=== PATIENT | male | born 1990 | race African-American/Black ===

== ENCOUNTER 2024-09-21 18:24 | Emergency (ER) | payer SELFPAY ==
--- NOTE | ~2024-09-21 | CT_ITS ---
CT soft tissue neck w con Ordering provider: Bee Shi PA-C History: 33 years Male with . neck swelling . Comparison: This was a presented Technique: CT soft tissues neck was performed with contrast. . The dose-length product was 496.19 mGy-cm. Findings: LOWER HEAD: The visualized brain parenchyma, optic globes/orbits and mastoids are normal. The visua lized paranasal sinuses are well aerated. SALIVARY GLANDS: Normal. THYROID: Normal. SUPRAHYOID DEEP SPACES: Normal. CAROTID ARTERIES: Normal. JUGULAR VEINS: Normal. TONSILS: Normal. ORAL CAVITY: Unremarkable PHARYNX, LARYNX AND TRACHEA: Patent. No prevertebral soft tissue swelling. SUPERFICIAL SOFT TISSUES: Unremarkable. Scattered nonpathologically enlarged lymph nodes within the bilateral cervical chains and the subment al lymph node basin. Prominent jugulodigastric lymph nodes are also detected. THORACIC INLET/VISUALIZED UPPER CHEST: Unremarkable. SKELETAL: No significant degenerative disease. IMPRESSION: Scattered nonpathologically enlarged lymph nodes within the bilateral cervical chains and the subment al lymph node basin, a nonspecific finding. Prominent jugulodigastric lymph nodes are also detected. Reviewed, dictated and finalized at location A. [employer] [employer] IMPRESSION: Scattered nonpathologically enlarged lymph nodes within the bilateral cervical chains and the submental lymph node basin, a nonspecific finding. Prominent jugulodigastric lymph nodes are also detected.
[2024-09-21 18:29] VITALS: BP 165/100; PULSE 95; RESP 18; TEMP 37.3; O2SAT 100
--- NOTE | 2024-09-21 18:32 | ED_ITS ---
HPI - General Adult General Chief complaint: Unspecified <Jordana Pennington PA-C - Last Filed: 09/21/24 18:33> Stated complaint: sore throat <Jordana Pennington PA-C - Last Filed: 09/21/24 18:33> Time Seen by Provider: 09/21/24 21:39 <Jordana Pennington PA-C - Last Filed: 09/21/24 18:33> Focused HPI: 33-year-old male presents emergency department for globus sensation for the past 3 days. Patient states it feels like someone is taking their fingers and pushing in on the anterior side of his neck. He states he feels this all the time and especially when he swallows. He denies difficulty swallowing or breathing. Denies sore throat or anterior neck pain, fever, history of thyroid disorders. GENERAL: Well-appearing, well-nourished, and in no acute distress. HEAD: Normocephalic, atraumatic. ENT: bilateral TMs are wiley nonbulging with normal canals. Posterior pharynx erythema or edema, no tonsillar hypertrophy or uvular deviation, no exudates CHEST: Clear to auscultation. ?No respiratory distress. HEART: Regular rate and rhythm.? NEURO: ?Alert and oriented x3. Patient screened in triage and initial orders placed.? ?Additional care and disposition to be based upon?diagnostic testing and treatment. <Jordana Pennington PA-C - Last Filed: 09/21/24 18:33> Focused HPI: 33-year-old male presents emergency department for globus sensation for the past 3 days. Patient states it feels like someone is taking their fingers and pushing in on the anterior side of his neck. He states he feels this all the time and especially when he swallows. He denies difficulty swallowing or breathing. Denies sore throat or anterior neck pain, fever, history of thyroid disorders. GENERAL: Well-appearing, well-nourished, and in no acute distress. HEAD: Normocephalic, atraumatic. ENT: bilateral TMs are wiley nonbulging with normal canals. Posterior pharynx erythema, no tonsillar hypertrophy or uvular deviation, no exudates CHEST: Clear to auscultation. ?No respiratory distress. HEART: Regular rate and rhythm.? NEURO: ?Alert and oriented x3. Patient screened in triage and initial orders placed.? ?Additional care and disposition to be based upon?diagnostic testing and treatment. <Bee Shi PA-C - Last Filed: 09/22/24 00:14> Review of Systems 2 Review of Systems: CONSTITUTIONAL: Denies fever ENT: Denies sore throat RESPIRATORY: Denies dyspnea. <Bee Shi PA-C - Last Filed: 09/22/24 00:14> All systems reviewed & are unremarkable except as noted in HPI and below < Bee Shi PA-C - Last Filed: 09/22/24 00:14> [facility] Past Medical History Medical History: Medical History (Updated 09/22/24 @ 00:12 by Bee Shi PA-C) No active medical problems <Jordana Pennington PA-C - Last Filed: 09/21/24 18:33> Social History Social History: Social History (Updated 09/21/24 @ 21:47 by Bee Shi PA-C) Substance use: never <Jordana Pennington PA-C - Last Filed: 09/21/24 18:33> Exam 2 Narrative: GENERAL: Well-appearing, well-nourished, and in no acute distress. HEAD: Normocephalic, atraumatic. EYES: EOMI. ENT: Nares clear, no rhinorrhea or epistaxis. Mucous membranes moist. Oropharynx without tonsillar hypertrophy exudate or other lesions. NECK: Supple. No adenopathy or masses. CHEST: Clear to auscultation. No respiratory distress. No wheezes rales or rhonchi HEART: Regular rate and rhythm. No murmur heard. Normal peripheral pulses. EXTREMITIES: Normal range of motion. No edema. SKIN: Warm, dry, no rash. NEURO: No focal deficits. Alert and oriented x3. PSYCH: Normal mood and affect <Bee Shi PA-C - Last Filed: 09/22/24 00:14> Course Course Emergency Course: Patient updated on his workup and agrees plan of care <Bee Shi PA-C - Last Filed: 09/22/24 00:14> Vital Signs Vital signs: Vital Signs Temperature 99.2 F 09/21/24 18:29 Pulse Rate 95 09/21/24 18:29 Respiratory Rate 18 09/21/24 18:29 Blood Pressure 165/100 H 09/21/24 18:29 Pulse Oximetry 100 09/21/24 18:29 Oxygen Delivery Room Air 09/21/24 18:29 Temperature 99.2 F 09/21/24 18:29 Pulse Rate 95 09/21/24 18:29 Respiratory Rate 18 09/21/24 18:29 Blood Pressure 165/100 H 09/21/24 18:29 Pulse Oximetry 100 09/21/24 18:29 Oxygen Delivery Room Air 09/21/24 18:29 <Jordana Pennington PA-C - Last Filed: 09/21/24 18:33> Vital Signs Temperature 99.2 F 09/21/24 18:29 Pulse Rate 95 09/21/24 18:29 Respiratory Rate 18 09/21/24 18:29 Blood Pressure 165/100 H 09/21/24 18:29 Pulse Oximetry 100 09/21/24 18:29 Oxygen Delivery Room Air 09/21/24 18:29 Temperature 99.2 F 09/21/24 18:29 Pulse Rate 95 09/21/24 18:29 Respiratory Rate 18 09/21/24 18:29 Blood Pressure 165/100 H 09/21/24 18:29 Pulse Oximetry 100 09/21/24 18:29 Oxygen Delivery Room Air 09/21/24 18:29 <DILLON Smith Last Filed: 09/22/24 00:14> Medical Decision Making MDM Narrative Medical decision making narrative: Patient presents to the emergency department for throat discomfort. He is afebrile and nontoxic appearing. CBC with mild leukocytosis to 12.4. Metabolic panel without concerning findings. COVID, influenza and RSV screens are negative. Strep screen is negative. CT soft tissue neck is shows scattered non pathologically enlarged lymph nodes. Patient updated on his workup and agrees plan of care. He is to follow up with primary provider. He was given warnings to return to the ER <DILLON Smith Last Filed: 09/22/24 00:14> Differential Diagnosis Differential Diagnosis: Strep, viral pharyngitis, lymphadenopathy <DILLON Smith Last Filed: 09/22/24 00:14> Vital Signs Vital Signs: Vital Signs Temperature 99.2 F 09/21/24 18:29 Pulse Rate 95 09/21/24 18:29 Respiratory Rate 18 09/21/24 18:29 Blood Pressure 165/100 H 09/21/24 18:29 Pulse Oximetry 100 09/21/24 18:29 Oxygen Delivery Room Air 09/21/24 18:29 Temperature 99.2 F 09/21/24 18:29 Pulse Rate 95 09/21/24 18:29 Respiratory Rate 18 09/21/24 18:29 Blood Pressure 165/100 H 09/21/24 18:29 Pulse Oximetry 100 09/21/24 18:29 Oxygen Delivery Room Air 09/21/24 18:29 <Jordana Pennington PA-C - Last Filed: 09/21/24 18:33> Vital Signs Temperature 99.2 F 09/21/24 18:29 Pulse Rate 95 09/21/24 18:29 Respiratory Rate 18 09/21/24 18:29 Blood Pressure 165/100 H 09/21/24 18:29 Pulse Oximetry 100 09/21/24 18:29 Oxygen Delivery Room Air 09/21/24 18:29 Temperature 99.2 F 09/21/24 18:29 Pulse Rate 95 09/21/24 18:29 Respiratory Rate 18 09/21/24 18:29 Blood Pressure 165/100 H 09/21/24 18:29 Pulse Oximetry 100 09/21/24 18:29 Oxygen Delivery Room Air 09/21/24 18:29 <Bee Shi PA-C - Last Filed: 09/22/24 00:14> Lab Data Lab results reviewed: Yes I reviewed the patient's lab results. <DILLON Smith Last Filed: 09/22/24 00:14> Result diagrams: 09/21/24 22:03 09/21/24 22:03 <DILLON Littlejohn Last Filed: 09/21/24 18:33> Labs: Lab Results 09/21/24 09/21/24 Range/Units 19:39 22:03 WBC 12.4 H (4.5-10.0) K/mm3 RBC 4.43 L (4.6-6.20) M/mm3 Hgb 12.1 L (14.0-18.0) g/dL Hct 37.0 L (42.0-52.0) % MCV 83.5 (80-100) fl MCH 27.3 (26-34) pg MCHC 32.7 (32-36) g/dl RDW 13.5 (11.5-14.5) % Plt Count 237 (150-375) k/mm3 MPV 9.3 (7.4-10.4) fl Immature Gran % (Auto) 0.5 (0-0.5) % Neut % (Auto) 64.9 (45.5-73.1) % Lymph % (Auto) 27.3 (18.3-44.2) % [place] % (Auto) 5.9 (2.6-8.5) % Eos % (Auto) 1.2 (0-4.4) % Baso % (Auto) 0.2 (0.2-1.2) % Lymph # (Auto) 3.39 H (0.9-3.2) K/mm3 [place]ac # (Auto) 0.7 H (0.1-0.6) K/mm3 Eos # (Auto) 0.2 (0-0.3) K/mm3 Baso # (Auto) 0.0 (0.0-0.1) K/mm3 Abs Immat Gran (auto) 0.06 H (0.00-0.031) K/mm3 Absolute Neuts (auto) 8.1 H (1.3-6.7) K/mm3 Absolute Nucleated RBC 0.000 (0.0-0.012) K/mm3 Nucleated RBC % 0.0 (0.0-0.2) % Sodium 137 (137-145) mmol/L Potassium 3.9 (3.4-5.0) mmol/L Chloride 99 (98-107) mmol/L Carbon Dioxide 27 (22-30) mmol/L Anion Gap 11 (4-12) mmol/L BUN 10 (9-20) mg/dL Creatinine 0.74 (0.7-1.3) mg/dL Estim Creat Clear Calc 208 ml/min Estimated GFR > 60 (59 - ) Glucose 103 (65-110) mg/dL Calcium 9.5 (8.4-10.2) mg/dL Influenza A (RT-PCR) Negative (Negative) Influenza B (RT-PCR) Negative (Negative) RSV (RT-PCR) Negative (Negative) SARS-CoV-2 RNA (RT-PCR) Negative (Negative) Group A Strep (PCR) Not detected (Negative) <Jordana Pennington PA-C - Last Filed: 09/21/24 18:33> Lab Results 09/21/24 09/21/24 Range/Units 19:39 22:03 WBC 12.4 H (4.5-10.0) K/mm3 RBC 4.43 L (4.6-6.20) M/mm3 Hgb 12.1 L (14.0-18.0) g/dL Hct 37.0 L (42.0-52.0) % MCV 83.5 (80-100) fl MCH 27.3 (26-34) pg MCHC 32.7 (32-36) g/dl RDW 13.5 (11.5-14.5) % Plt Count 237 (150-375) k/mm3 MPV 9.3 (7.4-10.4) fl Immature Gran % (Auto) 0.5 (0-0.5) % Neut % (Auto) 64.9 (45.5-73.1) % Lymph % (Auto) 27.3 (18.3-44.2) % [place]ac % (Auto) 5.9 (2.6-8.5) % Eos % (Auto) 1.2 (0-4.4) % Baso % (Auto) 0.2 (0.2-1.2) % Lymph # (Auto) 3.39 H (0.9-3.2) K/mm3 [place]ac # (Auto) 0.7 H (0.1-0.6) K/mm3 Eos # (Auto) 0.2 (0-0.3) K/mm3 Baso # (Auto) 0.0 (0.0-0.1) K/mm3 Abs Immat Gran (auto) 0.06 H (0.00-0.031) K/mm3 Absolute Neuts (auto) 8.1 H (1.3-6.7) K/mm3 Absolute Nucleated RBC 0.000 (0.0-0.012) K/mm3 Nucleated RBC % 0.0 (0.0-0.2) % Sodium 137 (137-145) mmol/L Potassium 3.9 (3.4-5.0) mmol/L Chloride 99 (98-107) mmol/L Carbon Dioxide 27 (22-30) mmol/L Anion Gap 11 (4-12) mmol/L BUN 10 (9-20) mg/dL Creatinine 0.74 (0.7-1.3) mg/dL Estim Creat Clear Calc 208 ml/min Estimated GFR > 60 (59 - ) Glucose 103 (65-110) mg/dL Calcium 9.5 (8.4-10.2) mg/dL Influenza A (RT-PCR) Negative (Negative) Influenza B (RT-PCR) Negative (Negative) RSV (RT-PCR) Negative (Negative) SARS-CoV-2 RNA (RT-PCR) Negative (Negative) Group A Strep (PCR) Not detected (Negative) <Bee Shi PA-C - Last Filed: 09/22/24 00:14> Imaging Data Radiologist's impression: ITS Impressions Soft Tissue Neck CT 09/21/24 22:56 IMPRESSION: Scattered nonpathologically enlarged lymph nodes within the bilateral cervical chains and the submental lymph node basin, a nonspecific finding. Prominent jugulodigastric lymph nodes are also detected. <Bee Shi PA-C - Last Filed: 09/22/24 00:14> Critical Care Time Critical Care Time Critical Care Time: No <DILLON Smith Last Filed: 09/22/24 00:14> Discharge Plan Discharge Clinical Impression: Lymphadenopathy of head and neck <DILLON Littlejohn Last Filed: 09/21/24 18:33> Patient Disposition: Home, Self-Care <DILLON Littlejohn Last Filed: 09/21/24 18:33> Condition: Stable <DILLON Littlejohn Last Filed: 09/21/24 18:33> Instructions: Lymphadenopathy (ED) <DILLON Littlejohn Last Filed: 09/21/24 18:33> Additional Instructions: Return to the emergency department for worsening symptoms, or any other concerns Remain well-hydrated, get plenty of rest. Take Tylenol or Motrin [id number] for pain as needed. Follow up with primary care doctor <Jordana Pennington PA-C - Last Filed: 09/21/24 18:33> Patient Language: Anguillan <Jordana Pennington PA-C - Last Filed: 09/21/24 18:33> Follow-up/Referrals: PHYSICIAN,RESIN SHAVER [Primary Care Provider] - Nacho Rivas MD [Physician] - <Jrodana Pennington PA-C - Last Filed: 09/21/24 18:33>
[2024-09-21 20:10] LABS: Strep Group A RT-PCR NOT DETECTED (Negative)
[2024-09-21 20:22] LABS: Influenza A QL RT-PCR Negative (Negative); Influenza B QL RT-PCR Negative (Negative); RSV RNA, RT-PCR Negative (Negative); SARS-CoV-2 RNA PCR Negative (Negative)
[2024-09-21 22:09] LABS: Basophils Percent Auto 0.2 % (0.2-1.2); Eosinophils Absolute Auto 0.2 K/mm3 (0-0.3); Eosinophils Percent Auto 1.2 % (0-4.4); Hemoglobin 12.1 g/dL (14.0-18.0); Immature Granulocyte Absolute 0.06 K/mm3 (0.00-0.031); Immature Granulocyte Percent A 0.5 % (0-0.5); Lymphocytes Absolute Auto 3.39 K/mm3 (0.9-3.2); Lymphocytes Percent Auto 27.3 % (18.3-44.2); Mean Corpuscular HGB Conc 32.7 g/dl (32-36); Mean Corpuscular Hemoglobin 27.3 pg (26-34); Mean Corpuscular Volume 83.5 fl (80-100); Mean Platelet Volume 9.3 fl (7.4-10.4); Monocytes Absolute Auto 0.7 K/mm3 (0.1-0.6); Monocytes Percent Auto 5.9 % (2.6-8.5); Neutrophils Absolute Auto 8.1 K/mm3 (1.3-6.7); Neutrophils Percent Auto 64.9 % (45.5-73.1); Platelet Count Result 237 k/mm3 (150-375); Red Blood Count 4.43 M/mm3 (4.6-6.20); Red Cell Distribution Width 13.5 % (11.5-14.5); White Blood Count 12.4 K/mm3 (4.5-10.0)
--- OUTSIDE RECORDS SUMMARY | 2024-09-21 22:10 | XMS_ITS | Clinical Summary ---
Author Organization [facility] Address [address] [place] [address] Care Team Providers Care Weight Training Instructor Name Role Phone Unavailable Primary Care Provider Unavailabl e Source Comments [facility] [employer],non-owned Affiliates and Associated Physician Practices is amultiple site organization consisting of ambulatory clinics and hospital sitesin [place], [place] and [place]. This disclosure is being madepursuant to the Care Everywhere program and may not contain all information available regarding this patient. Last updated 18.[facility] Allergies No known active allergies Social History Tobacco Use Types Packs/Day Years Used Date Smoking Tobacco: Every Day Cigarettes Smokeless Tobacco: Never Alcohol Use Standard Drinks/Week Comments Yes 0 (1 standard drink = 0.6 oz pur e alcohol) socially Sex and Gender Information Value Date Recorded Sex Assigned at Not on file Gender Identity Not on file Sexual Orientation Not on file Last Filed Vital Signs Vital Sign Reading Time Taken Comments Blood Pressure 157/108 09/11/2019 11:00 AM IMPORT CUSTOMER SERVICE MANAGER Pulse 80 09/11/2019 11:00 AM IMPORT CUSTOMER SERVICE MANAGER Temperature 36.7 C (98.1 F) 09/11/2019 11:00 AM IMPORT CUSTOMER SERVICE MANAGER Respiratory Rate 16 09/11/2019 11:00 AM IMPORT CUSTOMER SERVICE MANAGER Oxygen Saturation 100% 09/11/2019 11:00 AM IMPORT CUSTOMER SERVICE MANAGER Inhaled Oxygen Concentration - - Weight 154.2 kg (340 lb) 09/11/2019 11:00 AM IMPORT CUSTOMER SERVICE MANAGER Height 188 cm (6' 2 ) 09/11/2019 11:00 AM IMPORT CUSTOMER SERVICE MANAGER Body Mass Index 43.65 09/11/2019 11:00 AM IMPORT CUSTOMER SERVICE MANAGER Plan of Treatment Health Maintenance Due Date Last Done Comments HEPATITIS C SCREENING 10/04/2006 DTAP/TDAP/TD VACCINES (1 - Tdap) 2007 HEPATITIS B VACCINE (1 of 3 - 19+ 3-dose series) 2007 PNEUMOCOCCAL VACCINE (1 of 2 - PCV) 2007 COVID-19 VACCINE (1 - 2023-2 5 season) 2024 INFLUENZA VACCINE (#1) 2024 DEPRESSION SCREENING 08/15/2024 ZOSTER VACCINE (1 of 2) 2038 HIV SCREENING Completed 09/11/2019 HIB VACCINE Aged Out No longer eligi ble based on patient's age to complete this topic HPV VACCINE Aged Out No longer eligi ble based on patient's age to complete this topic MENINGOCOCCAL (Group B) VACCINE Aged Out No longer eligible based on patient's age to complete this topic MENINGOCOCCAL VACCINE Aged Out No maria e doris eligible based on patient's age to complete this topic Procedures Procedure Name Priority Date/Time Associated Diagnosis Comments HIV-1 HIV-2 ANTIBODY + HIV P24 AG PANEL STAT 09/11/2019 12:17 PM IMPORT CUSTOMER SERVICE MANAGER from Last 3 Months or Most Recently Relevant to Health Maintenance Results * HIV-1 HIV-2 ANTIBODY + HIV P24 AG PANEL (09/11/2019 12:17 PM IMPORT CUSTOMER SERVICE MANAGER) HIV1/2 Ab + P24 Ag Non Reactive Non Reactive 09/11/2019 1:05 PM IMPORT CUSTOMER SERVICE MANAGER [facility] Blood BLOOD SPECIMEN / Unknown Venipuncture / Unknown 09/11/2019 12:17 PM IMPORT CUSTOMER SERVICE MANAGER 09/11/2019 12:25 PM IMPORT CUSTOMER SERVICE MANAGER Narrative [facility] - 09/11/2019 1:05 PM IMPORT CUSTOMER SERVICE MANAGER No Laboratory evidence of HIV infection. Alan Laguerre MD LAB - CHEMISTRY CHRISTOPHER WALLER [facility] [address] [place] [address] from Last 3 Months or Most Recently Relevant to Health Maintenance
--- OUTSIDE RECORDS SUMMARY | 2024-09-21 22:10 | XMS_ITS | Referral Summary ---
Author Organization [facility] Address [address] [place] [address] Care Team Providers Care Crisis Therapist Name Role Phone Unavailable Primary Care Provider Unavailabl e Source Comments [facility] [employer],non-owned Affiliates and Associated Physician Practices is amultiple site organization consisting of ambulatory clinics and hospital sitesin [place], [place], [place] and [place]. This disclosure is being madepursuant to the Care Everywhere program and may not contain all information available regarding this patient. Last updated 18.[facility] [employer] Allergies No known active allergies Social History [...] Comments Blood Pressure 157/108 09/11/2019 11:00 AM ESTIMATOR PROJECT MANAGER Pulse 80 09/11/2019 11:00 AM ESTIMATOR PROJECT MANAGER Temperature 36.7 C (98.1 F) 09/11/2019 11:00 AM ESTIMATOR PROJECT MANAGER Respiratory Rate 16 09/11/2019 11:00 AM ESTIMATOR PROJECT MANAGER Oxygen Saturation 100% 09/11/2019 11:00 AM ESTIMATOR PROJECT MANAGER Inhaled Oxygen Concentration - - Weight 154.2 kg (340 lb) 09/11/2019 11:00 AM ESTIMATOR PROJECT MANAGER Height 188 cm (6' 2 ) 09/11/2019 11:00 AM ESTIMATOR PROJECT MANAGER Body Mass Index 43.65 09/11/2019 11:00 AM ESTIMATOR PROJECT MANAGER Plan of Treatment Not on file Procedures Procedure Name Priority Date/Time Associated Diagnosis Comments HIV-1 HIV-2 ANTIBODY + HIV P24 AG PANEL STAT 09/11/2019 12:17 PM ESTIMATOR PROJECT MANAGER from Last 3 Months or Most Recently Relevant to Health Maintenance Results * HIV-1 HIV-2 ANTIBODY + HIV P24 AG PANEL (09/11/2019 12:17 PM ESTIMATOR PROJECT MANAGER) HIV1/2 Ab + P24 Ag Non Reactive Non Reactive 09/11/2019 1:05 PM ESTIMATOR PROJECT MANAGER [facility] Blood BLOOD SPECIMEN / Unknown Venipuncture / Unknown 09/11/2019 12:17 PM ESTIMATOR PROJECT MANAGER 09/11/2019 12:25 PM ESTIMATOR PROJECT MANAGER Narrative [facility] - 09/11/2019 1:05 PM ESTIMATOR PROJECT MANAGER No Laboratory evidence of HIV infection. Alan Laguerre MD LAB - CHEMISTRY CHRISTOPHER WALLER [facility] Organization Address City/State/ZIP Co de Phone Number [facility] [address] [place] [address] from Last 3 Months or Most Recently Relevant to Health Maintenance
--- OUTSIDE RECORDS SUMMARY | 2024-09-21 22:10 | XMS_ITS | Patient Health Summary ---
Author Organization [facility] [email or web address] Address [address] [place] [address] Care Team Providers Care Project Associate Name Role Phone Unavailable Primary Care Provider Unavailabl e Note from [facility] [email or web address] [facility],non-owned Affiliates and Associated Physician Practices is amultiple site organization consisting of ambulatory clinics and hospital sitesin [place], [place], [place] and [place]. This disclosure is being madepursuant to the Care Everywhere program and may not contain all information available regarding this patient. Last updated 18.[facility] [email or web address] Allergies No known active allergies Social History [...] Comments Blood Pressure 157/108 09/11/2019 11:00 AM [facility] Pulse 80 09/11/2019 11:00 AM [facility] Temperature 36.7 C (98.1 F) 09/11/2019 11:00 AM [facility] Respiratory Rate 16 09/11/2019 11:00 AM [facility] Oxygen Saturation 100% 09/11/2019 11:00 AM [facility] Inhaled Oxygen Concentration - - Weight 154.2 kg (340 lb) 09/11/2019 11:00 AM [facility] Height 188 cm (6' 2 ) 09/11/2019 11:00 AM [facility] Body Mass Index 43.65 09/11/2019 11:00 AM [facility] Procedures * URINE MICROSCOPIC ONLY REFLEX TO CULTURE(Performed 09/11/2019) * URINALYSIS REFLEX MICROSCOPIC REFLEX CULTURE(Performed 09/11/2019) * CBC W AUTO DIFFERENTIAL(Performed 09/11/2019) * COMPREHENSIVE METABOLIC PANEL(Performed 09/11/2019) * HIV-1 HIV-2 ANTIBODY + HIV P24 AG PANEL(Performed 09/11/2019) Results * (ABNORMAL) URINE MICROSCOPIC ONLY REFLEX TO CULTURE (09/11/2019 12:19 PM [facility]) Reflex Status Culture not indicated 09/11/2019 12:36 PM [facility] RBC UA 6-10(A) None Seen, 0-2, 3-5 # /hpf 09/11/2019 12:36 PM [facility] WBC UA 0-5 None Seen, 0-5 # /hpf 09/11/2019 12:36 PM [facility] Bacteria UA None Seen None Seen 09/11/2019 12:36 PM [facility] Squamous Epithelial Cells 0-2 None Seen, 0-2, 3-5 /hpf 09/11/2019 12:36 PM [facility] Mucus UA 1+ /LPF 09/11/2019 12:36 PM [facility] Urine URINE SPECIMEN OBTAINED BY CLEAN CATCH PROCEDURE / Unknown Collection / Unknown 09/11/2019 12:19 PM [facility] 09/11/2019 12:24 PM [facility] Narrative [facility] - 09/11/2019 12:36 PM [facility] Rodríguez Hinton [employer]AC[employer] LAB - URINALYSIS ORDERABLES [facility] [address] [place] [address] * (ABNORMAL) URINALYSIS REFLEX MICROSCOPIC REFLEX CULTURE (09/11/2019 12:19 PM [facility]) Color UA Yellow Straw, Yellow 09/11/2019 12:34 PM [facility] Clarity UA Clear Clear 09/11/2019 12:34 PM [facility] Glucose UA Negative Negative 09/11/2019 12:34 PM [facility] Bilirubin UA Negative Negative 09/11/2019 12:34 PM [facility] Ketone UA Negative Negative 09/11/2019 12:34 PM [facility] Specific [employer] [facility] UA 1.017 1.005 - 1.030 09/11/2019 12:34 PM [facility] Blood UA 1+(A) Negative 09/11/2019 12:34 PM [facility] pH UA 7.0 5.0 - 8.0 pH 09/11/2019 12:34 PM [facility] Protein UA Negative Negative 09/11/2019 12:34 PM [facility] Urobilinogen UA Negative Negative mg/dL 09/11/2019 12:34 PM [facility] Nitrite UA Negative Negative 09/11/2019 12:34 PM [facility] Leukocyte UA Negative Negative 09/11/2019 12:34 PM [facility] Urine Microscopy Urine microscopy to follow 09/11/2019 12:34 PM [facility] Reflex Status Culture not indicated 09/11/2019 12:34 PM [facility] Urine URINE SPECIMEN OBTAINED BY CLEAN CATCH PROCEDURE / Unknown Collection / Unknown 09/11/2019 12:19 PM [facility] 09/11/2019 12:24 PM [facility] Narrative [facility] - 09/11/2019 12:34 PM [facility] Rodríguez ARAIZA LAB - URINALYSIS ORDERABLES Performing Organization Address [facility] Co de Phone Number [facility] [address] [place] [address] * HIV-1 HIV-2 ANTIBODY + HIV P24 AG PANEL (09/11/2019 12:17 PM [facility]) Pathologist [facility] HIV1/2 Ab + P24 Ag Non Reactive Non Reactive 09/11/2019 1:05 PM [facility] Blood BLOOD SPECIMEN / Unknown Venipuncture / Unknown 09/11/2019 12:17 PM [facility] 09/11/2019 12:25 PM [facility] Narrative [facility] - 09/11/2019 1:05 PM [facility] No Laboratory evidence of HIV infection. Alan Laguerre MD LAB - CHEMISTRY ORDE RABKRISTEN Performing Organization Address City/[facility]/ZIP Co de Phone Number [facility] [address] [place] [address] * (ABNORMAL) CBC W AUTO DIFFERENTIAL (09/11/2019 12:17 PM [facility]) WBC 9.3 4.4 - 10.7 x10E9/L 09/11/2019 12:30 PM [facility] WBC Corrected 09/11/2019 12:30 PM [facility] RBC 4.88 3.80 - 5.40 x10E12/L 09/11/2019 12:30 PM [facility] Hemoglobin 13.7 12.0 - 17.6 gm/dL 09/11/2019 12:30 PM [facility] Hematocrit 42.5 35.2 - 51.7 % 09/11/2019 12:30 PM [facility] MCV 87.1 80.7 - 98.3 fl 09/11/2019 12:30 PM [facility] MCH 28.1 26.7 - 34.0 pg 09/11/2019 12:30 PM [facility] MCHC 32.2 30.8 - 35.9 gm/dL 09/11/2019 12:30 PM [facility] Platelet Count 259 153 - 416 x10E9/L 09/11/2019 12:30 PM [facility] RDW-CV 13.3 12.1 - 14.9 % 09/11/2019 12:30 PM [facility] MPV 9.6 9.4 - 12.9 fl 09/11/2019 12:30 PM [facility] Neutrophils % 61.1 44.0 - 73.0 % 09/11/2019 12:30 PM [facility] Lymphocytes % 31.7 20.0 - 43.0 % 09/11/2019 12:30 PM [facility] Monocytes % 4.5(L) 5.0 - 13.0 % 09/11/2019 12:30 PM [facility] Eosinophils % 2.0 0.0 - 6.0 % 09/11/2019 12:30 PM [facility] Basophils % 0.3 0.0 - 2.0 % 09/11/2019 12:30 PM [facility] Immature Granulocytes 0.4 0 - 1 % 09/11/2019 12:30 PM [facility] Neutrophil Absolute 5.70 2.01 - 7.14 x10E9/L 09/11/2019 12:30 PM [facility] Lymphocytes Absolute 2.96 1.07 - 3.94 x10E9/L 09/11/2019 12:30 PM [facility] Monocytes Absolute 0.42 0.26 - 1.07 x10E9/L 09/11/2019 12:30 PM [facility] Eosinophils Absolute 0.19 0 - 0.47 x10E9/L 09/11/2019 12:30 PM [facility] Basophils Absolute 0.03 0 - 0.08 x10E9/L 09/11/2019 12:30 PM [facility] Immature Granulocytes Absolute 0.04 0.00 - 0.06 x10E9/L 09/11/2019 12:30 PM [facility] nRBC Auto 0 /100 WBC 09/11/2019 12:30 PM [facility] Blood BLOOD SPECIMEN / Unknown Venipuncture / Unknown 09/11/2019 12:17 PM [facility] 09/11/2019 12:25 PM [facility] Rodríguez Hinton [employer] LAB - HEMATOLOGY ORDERABLES [facility] [address] [place] [address] * (ABNORMAL) COMPREHENSIVE METABOLIC PANEL (09/11/2019 12:17 PM [facility]) Glucose 89 70 - 105 mg/dL 09/11/2019 12:46 PM [facility] Sodium 141 136 - 145 mmol/L 09/11/2019 12:46 PM [facility] Potassium 4.6 3.5 - 5.1 mmol/L 09/11/2019 12:46 PM [facility] Chloride 108(H) 98 - 107 mmol/L 09/11/2019 12:46 PM [facility] CO2 24 23 - 31 mmol/L 09/11/2019 12:46 PM [facility] Calcium 10.0 8.4 - 10.4 mg/dL 09/11/2019 12:46 PM [facility] Anion Gap 9 8 - 16 mmol/L 09/11/2019 12:46 PM [facility] BUN 13 8.9 - 20.6 mg/dL 09/11/2019 12:46 PM [facility] Creatinine 0.81 0.72 - 1.25 mg/dL 09/11/2019 12:46 PM [facility] Alkaline Phosphatase 80 40 - 150 U/L 09/11/2019 12:46 PM [facility] ALT 24 0 - 61 U/L 09/11/2019 12:46 PM [facility] AST 16 5 - 34 U/L 09/11/2019 12:46 PM [facility] Protein Total 8.0 6.4 - 8.3 gm/dL 09/11/2019 12:46 PM [facility] Albumin 4.5 3.5 - 5.2 gm/dL 09/11/2019 12:46 PM [facility] Bilirubin Total 0.3 0.2 - 1.2 mg/dL 09/11/2019 12:46 PM [facility] eGFR by MDRD >60 >60 mL/min/1.7 3m2 09/11/2019 12:46 PM [facility] eGFR by MDRD >60 >60 mL/min/1.7 3m2 09/11/2019 12:46 PM [facility] Blood BLOOD SPECIMEN / Unknown Venipuncture / Unknown 09/11/2019 12:17 PM [facility] 09/11/2019 12:25 PM [facility] Rodríguez Hinton [employer]OS[employer] FAC[employer]Y LAB - CHEMISTRY O RDERABLES [facility] [address] [place] [address]
[2024-09-21 22:27] LABS: Anion Gap 11 mmol/L (4-12); Blood Urea Nitrogen 10 mg/dL (9-20); Calcium 9.5 mg/dL (8.4-10.2); Carbon Dioxide 27 mmol/L (22-30); Chloride 99 mmol/L (98-107); Estimated CRCL calculation 208 ml/min; Estimated Glomerular Filt Rate > 60; Glucose 103 mg/dL (65-110); Potassium 3.9 mmol/L (3.4-5.0); Sodium 137 mmol/L (137-145)
[2024-09-22 00:24] VITALS: BP 180/101; PULSE 95; RESP 20; O2SAT 100
== END 2024-09-22 00:25 | disposition home or self-care (01) ==
PROVIDERS: Physician Assistant; Emergency Provider Physician Assistant
DX: R59.0 Localized enlarged lymph nodes (principal); Z20.822 Contact with and (suspected) exposure to COVID-19
CPT/HCPCS: 36415; 70491; 80048; 85025; 87637; 87651; 99284; Q9967